=== PATIENT | male | born 1965 | race Caucasian/White ===

== ENCOUNTER 2023-03-23 08:22 | Emergency (ER) | payer MEDICARE, MEDICAID ==
[2023-03-23] MEDS ORDERED: LORazepam 1 MG Tab PO ONE (08:50)
[2023-03-23 09:11] LABS: BASOPHILS ABSOLUTE AUTO 0.05 K/uL (0.00-0.10); BASOPHILS PERCENT AUTO 0.6 % (0.1-1.3); CARBOXYHEMOGLOBIN 2.2 % (0.0-1.6); EOSINOPHILS ABSOLUTE AUTO 0.28 K/uL (0.00-0.40); EOSINOPHILS PERCENT AUTO 3.4 % (0.0-5.4); HEMATOCRIT 40.9 % (38.4-49.7); HEMOGLOBIN 14.2 g/dL (12.9-16.9); IMMATURE GRAN ABSOLUTE AUTO 0.03 K/uL (0.00-0.23); IMMATURE GRAN PERCENT AUTO 0.4 % (0.0-0.7); LYMPHOCYTES ABSOLUTE AUTO 1.52 K/uL (0.8-3.3); LYMPHOCYTES PERCENT AUTO 18.3 % (11.4-47.7); MEAN CORPUSCULAR HEMOGLOBIN 28.5 pg (31.6-35.5); MEAN CORPUSCULAR HGB CONC 34.7 g/dL (31.6-35.5); METHEMOGLOBIN 0.8 %; MONOCYTES ABSOLUTE AUTO 0.64 K/uL (0.20-0.90); MONOCYTES PERCENT AUTO 7.7 % (3.3-12.6); NEUTROPHILS ABSOLUTE AUTO 5.79 K/uL (1.0-7.6); NEUTROPHILS PERCENT AUTO 69.6 % (40.0-78.1); O2 SATURATION VENOUS 89.1; OXYHEMOGLOBIN 86.4 %; PCO2 VENOUS 36.5 mm/Hg; PH,VENOUS 7.379 (7.350-7.450); PLATELET COUNT,PLT 226 K/uL (130-375); PO2 VENOUS 58.3 mm/Hg; RED BLOOD CELL COUNT 4.99 M/uL (4.14-5.76); TOTAL HEMOGLOBIN 14.9 g/dL (13.5-18.0); WHITE BLOOD CELL COUNT,WBC 8.3 K/uL (3.2-11.0)
[2023-03-23] MEDS: Nitroglycerin 0.4 MG Tab.SL SL PRN (09:13)
[2023-03-23] MEDS: Sodium Chloride 0.9% 500 ML IV SCH (09:14)
[2023-03-23 09:28] LABS: PROTHROMBIN TIME 9.8 sec (9.2-10.6)
[2023-03-23 09:42] LABS: ALANINE AMINOTRANSFERASE,ALT 82 U/L (12-78); ALBUMIN 3.4 g/dL (3.4-5.0); ALKALINE PHOSPHATASE 176 U/L (46-116); ASPARTATE AMNIOTRANSFERASE,AST 22 U/L (15-37); BILIRUBIN TOTAL 0.4 mg/dL (0.2-1.0); BLOOD UREA NITROGEN,BUN 20 mg/dL (7-18); CALCIUM 8.8 mg/dL (8.5-10.1); CARBON DIOXIDE,CO2 24 mmol/L (21-32); CHLORIDE,CL 101 mmol/L (100-108); CREATININE 1.1 mg/dL (0.8-1.3); EST CRCL DRUG DOSING (CG) 81.87 mL/min; ESTIMATED GFR 77 mL/min (>60); GLUCOSE RANDOM 251 mg/dL (74-106); POTASSIUM,K 4.3 mmol/L (3.6-5.2); PROTEIN TOTAL,TP 6.7 g/dL (6.4-8.2); SODIUM,NA 136 mmol/L (140-148)
[2023-03-23 09:44] LABS: ANION GAP 15.3 mmol/L (5.0-14.0)
== END 2023-03-23 10:31 | disposition home or self-care (01) ==
LOC: JP.ED 08:22
DX: F41.9 Anxiety disorder, unspecified (principal); R20.2 Paresthesia of skin; Z88.0 Allergy status to penicillin; Z91.011 Allergy to milk products; Z79.82 Long term (current) use of aspirin
CPT/HCPCS: 36415; 71045; 80053; 82803; 84443; 84484; 85025; 85379; 85610; 93005; 99285; A9270; J7030; 93010; 99284

== ENCOUNTER 2023-04-03 03:04 | Emergency (ER) | payer MEDICARE, MEDICAID ==
[2023-04-03 03:20] LABS: BASOPHILS ABSOLUTE AUTO 0.05 K/uL (0.00-0.10); BASOPHILS PERCENT AUTO 0.6 % (0.1-1.3); EOSINOPHILS ABSOLUTE AUTO 0.32 K/uL (0.00-0.40); EOSINOPHILS PERCENT AUTO 3.6 % (0.0-5.4); HEMATOCRIT 38.9 % (38.4-49.7); HEMOGLOBIN 13.5 g/dL (12.9-16.9); IMMATURE GRAN ABSOLUTE AUTO 0.04 K/uL (0.00-0.23); IMMATURE GRAN PERCENT AUTO 0.5 % (0.0-0.7); LYMPHOCYTES ABSOLUTE AUTO 1.46 K/uL (0.8-3.3); LYMPHOCYTES PERCENT AUTO 16.6 % (11.4-47.7); MEAN CORPUSCULAR HEMOGLOBIN 28.5 pg (31.6-35.5); MEAN CORPUSCULAR HGB CONC 34.7 g/dL (31.6-35.5); MEAN CORPUSCULAR VOLUME 82.2 fL (81.4-99.0); MONOCYTES ABSOLUTE AUTO 0.73 K/uL (0.20-0.90); MONOCYTES PERCENT AUTO 8.3 % (3.3-12.6); NEUTROPHILS ABSOLUTE AUTO 6.19 K/uL (1.0-7.6); NEUTROPHILS PERCENT AUTO 70.4 % (40.0-78.1); PLATELET COUNT,PLT 246 K/uL (130-375); RED BLOOD CELL COUNT 4.73 M/uL (4.14-5.76); WHITE BLOOD CELL COUNT,WBC 8.8 K/uL (3.2-11.0)
[2023-04-03] MEDS: Ketorolac 15 MG/ML SDV IVPUSH ONE (03:25)
[2023-04-03 03:43] LABS: ALANINE AMINOTRANSFERASE,ALT 49 U/L (12-78); ALBUMIN 3.2 g/dL (3.4-5.0); ALKALINE PHOSPHATASE 149 U/L (46-116); ASPARTATE AMNIOTRANSFERASE,AST 13 U/L (15-37); BILIRUBIN TOTAL 0.3 mg/dL (0.2-1.0); BLOOD UREA NITROGEN,BUN 14 mg/dL (7-18); CALCIUM 8.3 mg/dL (8.5-10.1); CARBON DIOXIDE,CO2 24 mmol/L (21-32); CHLORIDE,CL 103 mmol/L (100-108); CREATININE 0.9 mg/dL (0.8-1.3); EST CRCL DRUG DOSING (CG) 98.64 mL/min; ESTIMATED GFR 98 mL/min (>60); GLUCOSE RANDOM 233 mg/dL (74-106); POTASSIUM,K 4.4 mmol/L (3.6-5.2); PROTEIN TOTAL,TP 6.5 g/dL (6.4-8.2); SODIUM,NA 137 mmol/L (140-148); TROPONIN I HIGH SENSITIVITY 15.2 pg/mL (<=60.3)
[2023-04-03 03:44] LABS: ANION GAP 14.4 mmol/L (5.0-14.0)
[2023-04-03] MEDS: Morphine 4 MG/ML Syringe IVPUSH ONE (03:54)
[2023-04-03] MEDS: Ondansetron 4 MG/2 ML SDV IVPUSH ONE (03:54)
[2023-04-03] MEDS: Sodium Chloride 0.9% 1,000 ML IV SCH (08:56)
[2023-04-03] MEDS: LORazepam 0.5 MG Tab PO ONE (16:32)
== END 2023-04-03 16:46 ==
LOC: JP.ED 03:04
DX: K22.2 Esophageal obstruction (principal); F41.9 Anxiety disorder, unspecified; K22.0 Achalasia of cardia; E11.9 Type 2 diabetes mellitus without complications; K21.9 Gastro-esophageal reflux disease without esophagitis; Z79.899 Other long term (current) drug therapy; Z88.0 Allergy status to penicillin; Z88.8 Allergy status to other drugs, medicaments and biological substances; Z79.82 Long term (current) use of aspirin
CPT/HCPCS: 36415; 80053; 84484; 85025; 93005; 93010; 96361; 96374; 96375; 99284; 99285; A9270; J1885; J2270; J2405; J7030

== ENCOUNTER 2024-12-08 08:09 | Day surgery (SDC) | payer MEDICARE, MEDICAID ==
[~2024-12-08 08:09] MED LIST: Midazolam 1 MG/ML 2 ML SDV ONE; Propofol 200 MG/20 ML SDV ONE; fentaNYL 50 MCG/ML SDV ONE
[2024-12-08] MEDS: Lactated Ringers 1,000 ML IV SCH (08:33)
== END 2024-12-08 11:55 | disposition home or self-care (01) ==
LOC: JP.SDS 08:09
PROVIDERS: ATTEND Surgery
DX: Z12.11 Encounter for screening for malignant neoplasm of colon (principal)
CPT/HCPCS: 00812-QZ; J2250; J2704; J3010; J7120

== ENCOUNTER 2024-12-09 09:34 | Day surgery (SDC) | payer MEDICARE, MEDICAID ==
[2024-12-09] MEDS: Lactated Ringers 1,000 ML IV SCH (10:01)
[2024-12-09] MEDS ORDERED: fentaNYL 100 MCG/2 ML SDV ONE (10:16)
[2024-12-09] MEDS ORDERED: Propofol 200 MG/20 ML SDV ONE (10:16)
[2024-12-09] MEDS ORDERED: Midazolam 1 MG/ML 2 ML SDV ONE (10:16)
== END 2024-12-09 13:12 | disposition home or self-care (01) ==
LOC: JP.SDS 09:34
PROVIDERS: ATTEND Surgery
DX: Z12.11 Encounter for screening for malignant neoplasm of colon (principal); K57.30 Diverticulosis of large intestine without perforation or abscess without bleeding; E78.00 Pure hypercholesterolemia, unspecified; I10 Essential (primary) hypertension; E11.9 Type 2 diabetes mellitus without complications; Z88.0 Allergy status to penicillin; Z88.8 Allergy status to other drugs, medicaments and biological substances; Z79.82 Long term (current) use of aspirin; Z79.84 Long term (current) use of oral hypoglycemic drugs; Z79.899 Other long term (current) drug therapy; Z79.890 Hormone replacement therapy
CPT/HCPCS: G0121; J2250; J2704; J3010; J7120; 00812-QZ